=== PATIENT | female | born 1975 | race Two or more races ===

== ENCOUNTER 2019-01-02 20:45 | Emergency (ER) | payer SELFPAY ==
[~2019-01-02] VITALS: Ht 167.6 cm; Wt 64.0 kg
[2019-01-02 20:49] VITALS: BP 140/93
== END 2019-01-03 02:00 | disposition left against medical advice (07) ==
LOC: ER 20:45
DX: Z53.21 Procedure and treatment not carried out due to patient leaving prior to being seen by health care provider (principal)

== ENCOUNTER 2023-02-02 23:54 | Emergency (ER) | payer SELFPAY ==
[~2023-02-02] VITALS: Ht 167.6 cm; Wt 74.0 kg
[2023-02-02 23:59] VITALS: BP 142/78
[2023-02-03] MEDS ORDERED: ACETAMINOPHEN 325MG TABLET PO ONE (00:45)
== END 2023-02-03 01:46 | disposition home or self-care (01) ==
LOC: ER 02-03 00:01
DX: R51.9 Headache, unspecified (principal); F41.9 Anxiety disorder, unspecified; I10 Essential (primary) hypertension
CPT/HCPCS: 99283